=== PATIENT | male | born 1975 | race American Indian/Alaskan Native ===

== ENCOUNTER 2022-02-26 19:06 | Emergency (ER) | payer MEDICAID | END 2022-02-27 02:40 | LOC: DL.ED 19:06 | DX: T18.9XXA Foreign body of alimentary tract, part unspecified, initial encounter (principal); T19.0XXA Foreign body in urethra, initial encounter; R33.9 Retention of urine, unspecified; I25.2 Old myocardial infarction; E11.9 Type 2 diabetes mellitus without complications; Z79.4 Long term (current) use of insulin; Z79.899 Other long term (current) drug therapy; Z88.6 Allergy status to analgesic agent; Z88.8 Allergy status to other drugs, medicaments and biological substances; Z88.5 Allergy status to narcotic agent | CPT/HCPCS: 70360; 72170; 74018; 99285 ==